=== PATIENT | female | born 1990 | race Caucasian/White ===

== ENCOUNTER 2016-08-26 19:46 | Emergency (ER) | payer OTHER ==
[2016-08-26 19:51] VITALS: BP 111/71; PULSE 89; TEMP 98; BMI 27.1
--- NOTE | 2016-08-26 20:37 | PDOC ---
History of Present Illness - General Chief Complaint: Injury Stated Complaint: INJURY Time Seen by Provider: 08/26/16 20:19 History Source: Patient Exam Limitations: No Limitations - History of Present Illness Initial Comments: 08/26/16 20:36 All swimming yesterday collided with edge of pool causing a impact to left foot fourth and fifth toes. Has been bruised and swollen, exquisitely painful primarily fourth toe. No other injury 08/26/16 20:37 Occurred: reports: yesterday Severity: reports: moderate Pain Location: reports: none Associated Symptoms (Fall): denies symptoms Past History - Travel Traveled outside of the country in the last 30 days: No Close contact w/someone who was outside of country & ill: No - Past Medical History Allergies/Adverse Reactions: Allergies Allergy/AdvReac Type Severity Reaction Status Date / Time No Known Drug Allergies Allergy Verified 08/26/16 19:49 seafood AdvReac Severe swelling Uncoded 08/26/16 19:49 of body and face Home Medications: Ambulatory Orders Ibuprofen [Motrin -] 600 mg PO Q4H PRN #1 tablet 06/08/11 Iron 1 PO DAILY #0 06/08/11 Pnv Comb.no58/Iron Bisgly/FA [ Capsule] 1 each PO DAILY #0 capsule 06/07 Asthma: No Cancer: No Cardiac Disorders: No Diabetes: No HTN: No Seizures: No Thyroid Disease: No - Psycho/Social/Smoking Cessation Hx Suicidal Ideation: No Smoking History: Never smoked Hx Alcohol Use: No Drug/Substance Use Hx: No Hx Substance Use Treatment: No Trauma Specific PMHX - Complaint Specific PMHX Back Injury: No Neck Injury: No Review of Systems - Review of Systems Able to Perform ROS?: Yes Is the patient limited Icelandic proficient: Yes Constitutional: Yes: Symptoms Reported Integumentary: Yes: Symptoms Reported, See HPI Neurological: Yes: Symptoms reported All Other Systems: Reviewed and Negative *Physical Exam - Vital Signs Last Vital Signs Temp Pulse Resp BP Pulse Ox 98 F 89 18 111/71 100 08/26/16 19:50 08/26/16 19:50 08/26/16 19:50 08/26/16 19:50 08/26/16 19:50 - Physical Exam General Appearance: Yes: Nourished, Appropriately Dressed, Apparent Distress HEENT: positive: PATRICE, TMs Normal, Pharynx Normal Neck: positive: Tender, Supple Respiratory/Chest: positive: Lungs Clear, Normal Breath Sounds Extremity: positive: Tender, Swelling Integumentary: positive: Normal Color, Bruising Neurologic: positive: 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 Rhianna taped and cast shoe applied, will follow up as needed *DC/Admit/Observation/Transfer Diagnosis at time of Disposition: Fracture of fourth toe, left, closed Qualifiers: Encounter type: initial encounter Qualified Code(s): S92.502A - Displaced unspecified fracture of left lesser toe(s), initial encounter for closed fracture - Discharge Dispostion Disposition: HOME Condition at time of disposition: Stable Admit: No - Patient Instructions Printed Discharge Instructions: DI for Toe Fracture Additional Instructions: Rest, ice to area on and off for 15 minutes 4-6 times a day Avoid heavy lifting or exercise until pain and swelling is resolved or until further directed Keep area highly elevated to reduce swelling Use splints/Rafael wrap as directed- rhianna tape and cast shoe as directed Followup with orthopedist in one to 2 days if not improving, if significantly improved may wait one week for followup with orthopedist May use ibuprofen 2-200 mg tablets every 6 hours as needed for pain
== END 2016-08-26 20:44 | disposition home or self-care (01) ==
LOC: JERFT 19:46
DX: S92.502A Displaced unspecified fracture of left lesser toe(s), initial encounter for closed fracture (principal); W22.042A Striking against wall of swimming pool causing other injury, initial encounter; Y93.11 Activity, swimming; Y92.34 Swimming pool (public) as the place of occurrence of the external cause; Y99.8 Other external cause status
CPT/HCPCS: 99281-25

== ENCOUNTER 2016-12-26 21:26 | Emergency (ER) | payer OTHER ==
[2016-12-26 21:42] VITALS: BP 104/70; PULSE 79; TEMP 98.3; BMI 27.8
--- NOTE | 2016-12-26 22:03 | PDOC ---
History of Present Illness - General Chief Complaint: Respiratory Stated Complaint: COUGHING - History of Present Illness Initial Comments: 12/26/16 22:03 CHIEF COMPLAINT: cough HISTORY OF PRESENT ILLNESS: 26-year-old female with no past medical history presents to [facility] with cough 3 weeks. Patient reports that she has had no fever, chills, nausea, vomiting, diarrhea, and "I do not feel sick or anything "but is bothered by this cough. Patient reports that she thinks this is ALLERGIES and started taking Claritin approximately 1-2 weeks ago but has not had any relief. She has not taken any medicine for her cough. No recent travel or sick contacts. PAST MEDICAL HISTORY: Denies past medical history FAMILY HISTORY: Denies SOCIAL HISTORY: Denies tobacco, alcohol, illicit drug use. SURGICAL HISTORY: Denies ALLERGIES: No known drug allergies REVIEW OF SYSTEMS General/Constitutional: Denies fever or chills. Denies weakness. HEENT: Denies change in vision. Denies ear pain or discharge. Denies sore throat. Cardiovascular: Denies chest pain or shortness of breath. Respiratory: Cough x 3 weeks, denies wheezing or hemoptysis. Gastrointestinal: Denies nausea, vomiting, diarrhea PHYSICAL EXAM General Appearance: Well-appearing, appropriately dressed. No apparent distress. HEENT: Minimal exudate to left tonsil. EOMI, PERRLA, normal ENT inspection, normal voice, TMs normal, pharynx normal. No conjunctival pallor. No photophobia, scleral icterus. Respiratory/Chest: Lungs CTAB. No shortness of breath, chest tenderness, respiratory distress, accessory muscle use. No crackles, rales, rhonchi, stridor , wheezing, dullness Cardiovascular: RRR. S1, S2. No JVD, murmur, bradycardia, tachycardia. Gastrointestinal/Abdominal: Normal bowel sounds. Abdomen soft, non-distended. No tenderness or rebound tenderness. No organomegaly, pulsatile mass, guarding , hernia, hepatomegaly, splenomegaly. Musculoskeletal/Extremities: Normal inspection. FROM of all extremities, normal capillary refill. Pelvis Stable. No CVA tenderness. No tenderness to extremities, pedal edema, swelling, erythema or deformity. Integumentary: Appropriate color, dry, warm. No cyanosis, erythema, jaundice or rash Neurologic: .net architect II-XII intact. Fully oriented, alert. Appropriate mood/affect. Motor strength 5/5. No appreciable EOM palsy, facial droop or sensory deficit. 12/26/16 22:05 Past History - Past Medical History Allergies/Adverse Reactions: Allergies Allergy/AdvReac Type Severity Reaction Status Date / Time No Known Drug Allergies Allergy Verified 12/26/16 21:41 seafood AdvReac Severe swelling Uncoded 12/26/16 21:41 of body and face Home Medications: Ambulatory Orders Dextromethorphan HBr [Cough Control] 15 mg PO QID PRN #40 capsule 12/26/16 Ibuprofen 600 mg PO Q6H PRN #40 tablet 12/26/16 Asthma: No Cancer: No Cardiac Disorders: No Diabetes: No HTN: No Seizures: No Thyroid Disease: No - Suicide/Smoking/Psychosocial Hx Smoking History: Never smoked Hx Alcohol Use: No Drug/Substance Use Hx: No Hx Substance Use Treatment: No *Physical Exam - Vital Signs Last Vital Signs Temp Pulse Resp BP Pulse Ox 98.3 F 79 18 104/70 99 12/26/16 21:38 12/26/16 21:38 12/26/16 21:38 12/26/16 21:38 12/26/16 21:38 Medical Decision Making - Medical Decision Making 12/26/16 22:07 26-year-old female with no past medical history presents to [facility] with cough 3 weeks. -robitussin -continue claritin patient has appt with ENT in 9 days. advised patient to take medications as prescribed and keep appt with ENT if cough persists. *DC/Admit/Observation/Transfer Diagnosis at time of Disposition: Cough - Discharge Dispostion Disposition: HOME Condition at time of disposition: Stable Admit: No - Prescriptions Prescriptions: Dextromethorphan HBr [Cough Control] 15 mg PO QID PRN #40 capsule PRN Reason: Cough Ibuprofen 600 mg PO Q6H PRN #40 tablet PRN Reason: Pain - Patient Instructions Printed Discharge Instructions: DI for Cough -- Adult
== END 2016-12-26 22:14 | disposition home or self-care (01) ==
LOC: JER 21:26 → JERFT 21:26
DX: R05 Cough (principal)
CPT/HCPCS: 87070; 87077; 87430; 99281-25

== ENCOUNTER 2018-03-16 08:00 | Emergency (ER) | payer SELFPAY ==
[2018-03-16 08:06] VITALS: BP 116/68; PULSE 73; TEMP 98; BMI 26.1
--- NOTE | 2018-03-16 08:23 | PDOC ---
History of Present Illness - General Chief Complaint: Injury Stated Complaint: INJURY,FINGERS Time Seen by Provider: 03/16/18 08:17 - History of Present Illness Initial Comments: 03/16/18 08:28 Pt is a 27 y/o F who presents for evaluation of L wrist and 3rd/4th L finger pain. Pt states she was walking her dog, when her dog slipped and fell and pulled her down as well. She states she landed on her L wrist. She states that the L 4th nail is also bleeding. Denies LOC or head trauma. Denies numbness and tingling and weakness to the extremity. Past History - Past Medical History Allergies/Adverse Reactions: Allergies Allergy/AdvReac Type Severity Reaction Status Date / Time No Known Drug Allergies Allergy Verified 03/16/18 08:03 seafood AdvReac Severe swelling Uncoded 03/16/18 08:03 of body and face Home Medications: Ambulatory Orders NK [No Known Home Medication] 03/16/18 Asthma: No Cancer: No Cardiac Disorders: No COPD: No Diabetes: No HTN: No Seizures: No Thyroid Disease: No - Immunization History Immunization Up to Date: Yes - Suicide/Smoking/Psychosocial Hx Smoking History: Never smoked Hx Alcohol Use: No Drug/Substance Use Hx: No Hx Substance Use Treatment: No Review of Systems - Review of Systems Able to Perform ROS?: Yes Comments:: 03/16/18 08:22 CONSTITUTIONAL: Absent: fever, chills, diaphoresis, generalized weakness, malaise, loss of appetite MUSCULOSKELETAL: Present: L wrist pain/swelling Absent: myalgia, SKIN: Absent: rash, itching, pallor NEUROLOGIC: Absent: headache, focal weakness or paresthesias, dizziness, unsteady gait, seizure, mental status changes, bladder or bowel incontinence PSYCHIATRIC: Absent: anxiety, depression, suicidal or homicidal ideation, hallucinations. Is the patient limited Mongolian proficient: No *Physical Exam - Vital Signs Last Vital Signs Temp Pulse Resp BP Pulse Ox 98.0 F 73 18 116/68 100 03/16/18 08:03 03/16/18 08:03 03/16/18 08:03 03/16/18 08:03 03/16/18 08:03 - Physical Exam Comments: 03/16/18 08:23 GENERAL: The patient is awake, alert, and fully oriented, in no acute distress. HEAD: Normal with no signs of trauma. EYES: Pupils equal, round and reactive to light, extraocular movements intact, sclera anicteric, conjunctiva clear. EXTREMITIES: Normal range of motion, no edema. NEUROLOGICAL: Normal speech, normal gait. PSYCH: Normal mood, normal affect. SKIN: Warm, Dry, normal turgor, no rashes or lesions noted. Moderate Sedation - Procedure Monitoring Vital Signs: Procedure Monitoring Vital Signs Temperature 98.0 F 03/16/18 08:03 Pulse Rate 73 03/16/18 08:03 Respiratory Rate 18 03/16/18 08:03 Blood Pressure 116/68 03/16/18 08:03 O2 Sat by Pulse Oximetry (%) 100 03/16/18 08:03 ED Treatment Course - RADIOLOGY Radiology Studies Ordered: Category Date Time Status WRIST W/HAND-LEFT* [RAD] Stat Radiology 03/16/18 08:20 Ordered *DC/Admit/Observation/Transfer Diagnosis at time of Disposition: Wrist pain Qualifiers: Laterality: left Qualified Code(s): M25.532 - Pain in left wrist - Discharge Dispostion Disposition: HOME Condition at time of disposition: Stable Decision to Admit order: No - Referrals Referrals: Cecil Bowers MD [Primary Care Provider] - - Patient Instructions Printed Discharge Instructions: DI for Nail Avulsion Injury Additional Instructions: You fell today. Your x-ray was negative for fractures or broken bones You had your nail come out of the nail bed. This was fixed today Please keep the nail clean and dry. If the steri strips fall off, please replace them Return to the ED in 2 days for a wound check Return to the ED sooner if you have signs of infection including fever, redness around the nail or finger, purlent discharge, or if you have any changes in your symptoms - Post Discharge Activity Forms/Work/School Notes: Back to Work
[2018-03-16] MEDS ORDERED: IBUPROFEN 400 MG TABLET (FP) PO ONE ×2 (08:27)
== END 2018-03-16 10:41 | disposition home or self-care (01) ==
LOC: JERFT 08:00
DX: M25.532 Pain in left wrist (principal); W01.0XXA Fall on same level from slipping, tripping and stumbling without subsequent striking against object, initial encounter; Y93.K1 Activity, walking an animal; Y92.410 Unspecified street and highway as the place of occurrence of the external cause
CPT/HCPCS: 73110-TC-LR-FY; 73130-TC-LT-FY; 99281-25

== ENCOUNTER 2019-10-02 15:35 | Emergency (ER) | payer OTHER ==
[2019-10-02 15:44] VITALS: BP 111/78; PULSE 81; TEMP 98.6; BMI 27.8
[2019-10-02] MEDS ORDERED: METHOCARBAMOL 500 MG TABLET PO ONE (15:45)
[2019-10-02] MEDS ORDERED: KETOROLAC TROMETHAMINE 60 MG/2 ML VIAL IM ONE (15:45)
--- NOTE | 2019-10-02 15:45 | PDOC ---
Rapid Medical Evaluation Chief Complaint: Pain, Acute Time Seen by Provider: 10/02/19 15:41 Medical Evaluation: Allergies Allergy/AdvReac Type Severity Reaction Status Date / Time No Known Drug Allergies Allergy Verified 03/16/18 08:03 seafood AdvReac Severe swelling Uncoded 03/16/18 08:03 of body and face 10/02/19 15:41 I have performed a brief in-person evaluation of this patient. The patient presents with a chief complaint of: posterior right shoulder pain after waking yesterday which increases with elevation of right arm. Denies trauma or injury. pt did not take anything for pain. Denies any other symptoms Pertinent physical exam findings: TTP over scapula of right shoulder with increased subjective pain with inversion of RUE or elevation of right arm . I have ordered the following: ace adhikari The patient will proceed to the ED for further evaluation. Discharge Disposition - Diagnosis Sprain of right shoulder girdle Qualifiers: Encounter type: initial encounter Qualified Code(s): S43.91XA - Sprain of unspecified parts of right shoulder girdle, initial encounter - Discharge Dispostion Condition at time of disposition: Stable - Referrals - Patient Instructions - Post Discharge Activity
[2019-10-02] MEDS ORDERED: KETOROLAC TROMETHAMINE 60 MG/2 ML VIAL ONE (15:52)
[2019-10-02] MEDS ORDERED: METHOCARBAMOL 500 MG TABLET ONE (15:54)
--- NOTE | 2019-10-02 16:49 | PDOC ---
History of Present Illness - General Chief Complaint: Pain, Acute Stated Complaint: RT SHOULDER PAIN Time Seen by Provider: 10/02/19 15:41 History Source: Patient Exam Limitations: No Limitations - History of Present Illness Initial Comments: 10/02/19 16:46 HISTORY OF PRESENT ILLNESS: 28-year-old woman who denies medical history presents emergency department for evaluation of right upper back pain starting 2 days ago. Patient reports she woke up in the morning and felt a sharp stabbing pain in her right upper back which worsens with movement. Patient was unable to quantify the amount of pain but notes that it is "very bad." Patient has not taken any pain management prior to arrival in the emergency department and is now concerned that pain is moved to her right axilla. Patient denies any neurosensory deficits or trauma. No recent travel or sick contacts. PAST MEDICAL HISTORY: Denies past medical history SURGICAL HISTORY: Denies ALLERGIES: No known drug allergies REVIEW OF SYSTEMS General/Constitutional: Denies fever or chills. Denies weakness, weight change. HEENT: Denies change in vision. Denies ear pain or discharge. Denies sore throat. Cardiovascular: Denies chest pain or shortness of breath. Respiratory: Denies cough, wheezing, or hemoptysis. Gastrointestinal: Denies nausea, vomiting, diarrhea or constipation. Denies rectal bleeding. Genitourinary: Denies dysuria, frequency, or change in urination. Musculoskeletal: See HPI Skin and breasts: Denies rash or easy bruising. Neurologic: Denies headache, vertigo, loss of consciousness, or loss of s ensation. Psychiatric: Denies depression or anxiety. Endocrine: Denies increased thirst. Denies abnormal weight change. Hematologic/Lymphatic: Denies anemia, easy bleeding, or history of blood clots. Allergic/Immunologic: Denies hives or skin allergy. Denies latex allergy. PHYSICAL EXAM General Appearance: Well-appearing, appropriately dressed. No apparent distress, no intoxication. Musculoskeletal/Extremities: Normal inspection. FROM of all extremities, normal capillary refill. Pelvis Stable. No CVA tenderness. No tenderness to extremities, pedal edema, swelling, erythema or deformity. Point tenderness present in the trapezius muscle on the right side midline under scapula. Neurologic: oven loader II-XII intact. Fully oriented, alert. Appropriate mood/affect. Motor strength 5/5. No appreciable EOM palsy, facial droop or sensory deficit. 10/02/19 17:09 Past History - Medical History Allergies/Adverse Reactions: Allergies Allergy/AdvReac Type Severity Reaction Status Date / Time No Known Drug Allergies Allergy Verified 10/02/19 15:44 seafood AdvReac Severe swelling Uncoded 10/02/19 15:44 of body and face Home Medications: Ambulatory Orders Methocarbamol [Robaxin -] 1,000 mg PO TID PRN #42 tablet 10/02/19 Asthma: No Cancer: No Cardiac Disorders: No COPD: No Diabetes: No HTN: No Seizures: No Thyroid Disease: No - Immunization History Immunization Up to Date: Yes - Psycho-Social/Smoking History Smoking History: Never smoked - Substance Abuse Hx (Audit-C & DAST Scrn) How often the patient has a drink containing alcohol: Never Score: In Men: 4 or > Positive; In Women: 3 or > Positive: 0 Screen Result (Pos requires Nsg. Audit-10AR): Negative Trauma Specific PMHX - Complaint Specific PMHX Back Injury: No Neck Injury: No *Physical Exam - Vital Signs Last Vital Signs Temp Pulse Resp BP Pulse Ox 98.6 F 81 18 111/78 99 10/02/19 15:41 10/02/19 15:41 10/02/19 15:41 10/02/19 15:41 10/02/19 15:41 ED Treatment Course - Medications Given in the ED: ED Medications Discontinued Medications Generic Name Dose Route Start Last Admin Trade Name Freq PRN Reason Stop Dose Admin Ketorolac Tromethamine 60 mg 10/02/19 15:45 10/02/19 16:16 Toradol Injection - IM 10/02/19 15:46 60 mg ONCE ONE Administration Methocarbamol 500 mg 10/02/19 15:45 10/02/19 16:16 Robaxin - PO 10/02/19 15:46 500 mg ONCE ONE Administration Medical Decision Making - Medical Decision Making 10/02/19 16:48 A/P: 28-year-old woman with atraumatic right upper back pain Point tenderness in the right trapezius muscle midline under scapula. No bony tenderness, deformity, crepitus or step-off is appreciated along the cervical and thoracic spine. No bony abnormality noted upon palpation of the clavicle or bones of the shoulders bilaterally. Meds per RME Reassess 10/02/19 17:08 Patient reports she is currently pain-free and is requesting discharge. Discharge home with prescription for Robaxin and PMD follow-up. I discussed the physical exam findings, ancillary test results and final diagnoses with the patient. I answered all of the patient's questions. The patient was satisfied with the care received and felt comfortable with the discharge plan and treatment plan. The patient will call their primary care physician within 24 hours to arrange follow-up and will return to the Emergency Department with any new, persistent or worsening symptoms. Portions of this note have been documented using voice recognition software. As a result, errors may occur in the supervisor fryer farm process. Effort has been made to correct all grammatical and supervisor fryer farm error, but some may have been missed which may produce sporadic inaccurate supervisor fryer farm or nonsensical phrases. Discharge - Discharge Information Problems reviewed: Yes Clinical Impression/Diagnosis: Sprain of right shoulder girdle Qualifiers: Encounter type: initial encounter Qualified Code(s): S43.91XA - Sprain of unspecified parts of right shoulder girdle, initial encounter Condition: Fair Disposition: HOME - Admission No - Additional Discharge Information Prescriptions: Methocarbamol [Robaxin -] 1,000 mg PO TID PRN #42 tablet PRN Reason: Pain - Follow up/Referral Referrals: Marci Kan NP [Primary Care Provider] - - Patient Discharge Instructions Additional Instructions: Rest. Take Naprosyn as directed by motor vehicle or caravan salesperson's instructions. Take Robaxin 1000 mg 3 times a day as needed for pain. Your emergency department visit is incomplete until you follow-up with your primary doctor. Return to the ER for any new or worsening symptoms. Thank you very much for choosing us to provide your emergent healthcare needs. - Post Discharge Activity
== END 2019-10-02 17:15 | disposition home or self-care (01) ==
LOC: JERFT 15:35
PROC: 3E0233Z Introduction of Anti-inflammatory into Muscle, Percutaneous Approach (ICD-10-PCS; principal; 2019-10-02)
DX: S43.91XA Sprain of unspecified parts of right shoulder girdle, initial encounter (principal)
CPT/HCPCS: 99284-25

== ENCOUNTER 2020-07-23 15:49 | Emergency (ER) | payer OTHER ==
[2020-07-23 16:19] VITALS: BMI 28.2
[2020-07-23] MEDS ORDERED: SODIUM CHLORIDE 1,000 ML IV STA (17:36)
[2020-07-23] MEDS ORDERED: ACETAMINOPHEN 500 MG TABLET (FP) PO ONE (17:37)
[2020-07-23] MEDS ORDERED: IBUPROFEN 600 MG TABLET (FP) PO ONE ×2 (17:37→18:23)
[2020-07-23] MEDS ORDERED: DEXAMETHASONE LIQUID 0.5 MG/5 ML PO ONE (17:37)
[2020-07-23] MEDS ORDERED: DEXAMETHASONE SOD PHOSPHATE 10 MG/1 ML VIAL ONE (18:23)
[2020-07-23] MEDS ORDERED: ACETAMINOPHEN 325 MG TABLET (FP) ONE (18:23)
[2020-07-23 18:55] LABS: BASO % 0.3 % (0-2.0); EOS % 5.1 % (0-4.5); HEMATOCRIT 40.5 % (32.4-45.2); HEMOGLOBIN 13.6 GM/dL (10.7-15.3); LYMPH % 7.7 % (8-40); MCH 28.4 pg (25.7-33.7); MCHC 33.6 g/dl (32.0-36.0); MEAN CELL VOLUME 84.5 fl (80-96); MEAN PLT VOLUME 9.6 fl (7.5-11.1); MONO % 7.6 % (3.8-10.2); NEUT % 79.3 % (42.8-82.8); PLATELET COUNT 212 K/MM3 (134-434); RDW 13.9 % (11.6-15.6); WHITE BLOOD COUNT 8.2 K/mm3 (4.0-10.0)
[2020-07-23] MEDS ORDERED: PENICILLIN G BENZATHINE 1,200,000 UNIT/2 ML PFS IM ONE ×2 (18:58→19:50)
[2020-07-23 19:20] LABS: BLOOD UREA NITROGEN 9.7 mg/dL (7-18); CALCIUM 8.7 mg/dL (8.5-10.1)
[2020-07-23 19:21] LABS: ALBUMIN 3.7 g/dl (3.4-5.0)
[2020-07-23 19:24] LABS: CREATININE 0.8 mg/dL (0.55-1.3)
[2020-07-23 19:25] LABS: BILIRUBIN,TOTAL 0.5 mg/dL (0.2-1)
[2020-07-23 20:32] VITALS: BP 115/68; PULSE 116; TEMP 98.5
== END 2020-07-23 20:32 | disposition home or self-care (01) ==
LOC: JER 15:49 → JERFT 15:49 → JER 20:32
PROC: 3E02329 Introduction of Other Anti-infective into Muscle, Percutaneous Approach (ICD-10-PCS; principal; 2020-07-23)
PROC: 3E0337Z Introduction of Electrolytic and Water Balance Substance into Peripheral Vein, Percutaneous Approach (ICD-10-PCS; 2020-07-23)
DX: J02.0 Streptococcal pharyngitis (principal)
CPT/HCPCS: 36415; 80053; 83605; 85025; 86308; 87040; 87880; 99284-25; C9803; U0003; U0005

== ENCOUNTER 2022-12-22 19:31 | Inpatient (IN) | payer OTHER ==
[2022-12-22] MEDS ORDERED: ACETAMINOPHEN 1000 MG/100 ML BAG IVPB ONE (19:44)
[2022-12-22] MEDS ORDERED: SODIUM CHLORIDE 0.9% 500 ML INFUS.BAG IV ONE (19:44)
[2022-12-22] MEDS ORDERED: ACETAMINOPHEN INJECTION 100 ML IVPB ONE (19:52)
[2022-12-22] MEDS ORDERED: ONDANSETRON 4 MG/2 ML VIAL IVPUSH ONE (19:54)
[2022-12-22] MEDS ORDERED: ONDANSETRON 4 MG/2 ML VIAL ONE (19:57)
[2022-12-22 20:50] LABS: BASO % 0.4 % (0-2.0); EOS % 1.2 % (0-4.5); HEMATOCRIT 40.9 % (32.4-45.2); HEMOGLOBIN 13.9 GM/dL (10.7-15.3); LYMPH % 26.2 % (8-40); MCH 28.5 pg (25.7-33.7); MCHC 33.9 g/dl (32.0-36.0); MEAN CELL VOLUME 84.1 fl (80-96); MEAN PLT VOLUME 9.5 fl (7.5-11.1); MONO % 4.2 % (3.8-10.2); PLATELET COUNT 370 10^3/uL (134-434); RBC 4.86 M/mm3 (3.60-5.2); RDW 14.3 % (11.6-15.6); WHITE BLOOD COUNT 11.5 K/mm3 (4.0-10.0)
[2022-12-22 21:04] LABS: POTASSIUM 4.1 mmol/L (3.5-5.1)
[2022-12-22 21:06] LABS: ALBUMIN 4.3 g/dl (3.4-5.0); CALCIUM 9.4 mg/dL (8.5-10.1)
[2022-12-22 21:07] LABS: BLOOD UREA NITROGEN 12.3 mg/dL (7-18)
[2022-12-22 21:09] LABS: CREATININE 0.8 mg/dL (0.55-1.3)
[2022-12-22 21:11] LABS: BILIRUBIN,TOTAL 0.3 mg/dL (0.2-1); TOT PROT 8.7 g/dl (6.4-8.2)
[2022-12-22] MEDS ORDERED: KETOROLAC TROMETHAMINE 15 MG/ML VIAL IVPUSH ONE (21:36)
[2022-12-22 21:59] LABS: EPI CELLS >36 /uL (0-25.1); HYALINE CASTS 2 /uL (0-3.1); URINE APPEARANCE CLOUDY; URINE BACTERIA 254 /uL (0-1359); URINE BILIRUBIN NEGATIVE (NEGATIVE); URINE COLOR YELLOW; URINE GLUCOSE (UA) NEGATIVE (NEGATIVE); URINE KETONE TRACE (NEGATIVE); URINE LEUK ESTERASE NEGATIVE (NEGATIVE); URINE NITRITE NEGATIVE (NEGATIVE); URINE PROTEIN 1+ (NEGATIVE); URINE RBC 822 /uL (0-23.9); URINE WBC 47 /uL (0-25.8)
[2022-12-22] MEDS ORDERED: CEFTRIAXONE 1 GM in DEXTROSE 5%-WATER - 100 ML IVPB ONE (22:10)
[2022-12-22] MEDS ORDERED: cefTRIAXone SODIUM 1 GM VIAL ONE (22:13)
[2022-12-22] MEDS ORDERED: CEFTRIAXONE 1 GM/50 ML BAG ONE (22:18)
[2022-12-22] MEDS ORDERED: KETOROLAC TROMETHAMINE 15 MG/ML VIAL ONE (22:45)
[2022-12-23] MEDS: DEXTROSE 5%-0.45% SALINE 1,000 ML IV SCH ×2 (00:16→11:30)
[2022-12-23] MEDS ORDERED: ACETAMINOPHEN 1000 MG/100 ML BAG IVPB PRN (02:00)
[2022-12-23] MEDS ORDERED: ONDANSETRON 4 MG/2 ML VIAL IVPUSH PRN (02:00)
[2022-12-23] MEDS ORDERED: ACETAMINOPHEN INJECTION 100 ML IVPB ONE (05:19)
[2022-12-23 08:23] LABS: BASO % 0.6 % (0-2.0); EOS % 2.3 % (0-4.5); HEMATOCRIT 38.2 % (32.4-45.2); HEMOGLOBIN 12.6 GM/dL (10.7-15.3); LYMPH % 34.7 % (8-40); MCH 28.5 pg (25.7-33.7); MEAN CELL VOLUME 86.3 fl (80-96); MEAN PLT VOLUME 9.2 fl (7.5-11.1); MONO % 5.5 % (3.8-10.2); NEUT % 56.9 % (42.8-82.8); PLATELET COUNT 375 10^3/uL (134-434); RBC 4.43 M/mm3 (3.60-5.2); RDW 14.5 % (11.6-15.6); WHITE BLOOD COUNT 9.9 K/mm3 (4.0-10.0)
[2022-12-23 08:59] VITALS: BMI 31.1
[2022-12-23 09:08] LABS: BLOOD UREA NITROGEN 11.4 mg/dL (7-18); CALCIUM 7.9 mg/dL (8.5-10.1); CREATININE 0.6 mg/dL (0.55-1.3); POTASSIUM 4.3 mmol/L (3.5-5.1)
[2022-12-23] MEDS: CEFTRIAXONE 1 GM in DEXTROSE 5%-WATER - 50 ML IVPB SCH (09:40)
[2022-12-24] MEDS: DEXTROSE 5%-0.45% SALINE 1,000 ML IV SCH ×3 (00:27→21:11)
[2022-12-24] MEDS: CEFTRIAXONE 1 GM in DEXTROSE 5%-WATER - 50 ML IVPB SCH (11:00)
[2022-12-24] MEDS ORDERED: PROPOFOL 40 ML ONE (15:42)
[2022-12-24] MEDS ORDERED: MIDAZOLAM HCL 2 MG/2 ML SINGLE DOSE VIAL ONE (15:42)
[2022-12-24] MEDS ORDERED: SUCCINYLCHOLINE CHLORIDE 200 MG/10 ML SYRINGE ONE (15:42)
[2022-12-24] MEDS ORDERED: PROPOFOL 20 ML ONE (15:50)
[2022-12-24] MEDS ORDERED: LACTATED RINGERS SOLUTION 1,000 ML IV SCH ×2 (17:30→19:30)
[2022-12-24] MEDS ORDERED: KETOROLAC TROMETHAMINE 30 MG/1 ML VIAL ONE (17:57)
[2022-12-24] MEDS ORDERED: ONDANSETRON 4 MG/2 ML VIAL ONE (17:57)
[2022-12-24] MEDS ORDERED: ceFAZolin SODIUM 1 GM VIAL ONE (17:57)
[2022-12-24] MEDS ORDERED: ceFAZolin SODIUM 1 GM VIAL IVPB ONE (17:58)
[2022-12-24] MEDS ORDERED: ONDANSETRON 4 MG/2 ML VIAL IVPUSH PRN (19:30)
[2022-12-24] MEDS: ACETAMINOPHEN 1000 MG/100 ML BAG IVPB PRN (21:19)
[2022-12-25 06:17] VITALS: RESP 18
[2022-12-25] MEDS: DEXTROSE 5%-0.45% SALINE 1,000 ML IV SCH ×2 (06:20→17:34)
[2022-12-25] MEDS: ACETAMINOPHEN 1000 MG/100 ML BAG IVPB PRN ×3 (08:10→20:30)
[2022-12-25] MEDS ORDERED: CEFTRIAXONE 1 GM in DEXTROSE 5%-WATER - 50 ML IVPB SCH (10:00)
[2022-12-26] MEDS: ACETAMINOPHEN 1000 MG/100 ML BAG IVPB PRN (03:32)
[2022-12-26] MEDS: DEXTROSE 5%-0.45% SALINE 1,000 ML IV SCH (03:32)
[2022-12-26 10:12] LABS: POTASSIUM 3.9 mmol/L (3.5-5.1)
[2022-12-26 10:37] LABS: BLOOD UREA NITROGEN 6.6 mg/dL (7-18); CALCIUM 8.5 mg/dL (8.5-10.1)
[2022-12-26 10:38] VITALS: BP 117/68; PULSE 91; TEMP 98.4
[2022-12-26 10:40] LABS: CREATININE 0.5 mg/dL (0.55-1.3)
== END 2022-12-26 13:25 | disposition home or self-care (01) | DRG 463 ==
LOC: JER 19:31 → JERBED 23:05 → J5S 12-23 08:01 → OBSVTOIN 12-24 09:55
PROVIDERS: ADMIT Internal Medicine; ATTEND Family Medicine
PROC: 0T778DZ Dilation of Left Ureter with Intraluminal Device, Via Natural or Artificial Opening Endoscopic (ICD-10-PCS; principal; 2022-12-24 16:00)
PROC: BT1FZZZ Fluoroscopy of Left Kidney, Ureter and Bladder (ICD-10-PCS; 2022-12-24 16:00)
DX: N13.6 Pyonephrosis (principal); D72.829 Elevated white blood cell count, unspecified
CPT/HCPCS: 36415; 74176-TC; 80048; 80053; 81003; 84703; 85025; 87086; 94760; 99285-25; C2617; G0378

== ENCOUNTER 2022-12-27 22:34 | Observation (INO) | payer OTHER ==
[2022-12-27] MEDS ORDERED: KETOROLAC TROMETHAMINE 15 MG/ML VIAL IVPUSH ONE (23:15)
[2022-12-27] MEDS ORDERED: ONDANSETRON 4 MG/2 ML VIAL IVPUSH ONE (23:35)
[2022-12-27] MEDS ORDERED: SODIUM CHLORIDE 0.9% 500 ML INFUS.BAG IV ONE (23:35)
[2022-12-27] MEDS ORDERED: ONDANSETRON 4 MG/2 ML VIAL ONE (23:52)
[2022-12-27] MEDS ORDERED: KETOROLAC TROMETHAMINE 15 MG/ML VIAL ONE (23:52)
[2022-12-28 00:42] LABS: CHLORIDE 104 mmol/L (98-107); SODIUM 137 mmol/L (136-145)
[2022-12-28 00:44] LABS: CALCIUM 8.4 mg/dL (8.5-10.1)
[2022-12-28 00:45] LABS: BLOOD UREA NITROGEN 12.4 mg/dL (7-18); CO2 32 mmol/L (21-32); GLUCOSE,RANDOM 101 mg/dL (74-106)
[2022-12-28 00:48] LABS: CREATININE 0.9 mg/dL (0.55-1.3); SGOT/AST 63 U/L (15-37)
[2022-12-28 00:49] LABS: BILIRUBIN,TOTAL 0.2 mg/dL (0.2-1); TOT PROT 7.8 g/dl (6.4-8.2)
[2022-12-28 00:51] LABS: ALK PHOS 84 U/L (45-117)
[2022-12-28 01:16] LABS: BASO % 0.7 % (0-2.0); HEMATOCRIT 37.6 % (32.4-45.2); HEMOGLOBIN 12.1 GM/dL (10.7-15.3); LYMPH % 22.5 % (8-40); MCH 27.4 pg (25.7-33.7); MEAN CELL VOLUME 85.5 fl (80-96); MEAN PLT VOLUME 8.5 fl (7.5-11.1); MONO % 7.6 % (3.8-10.2); NEUT % 66.2 % (42.8-82.8); PLATELET COUNT 372 10^3/uL (134-434); RDW 14.6 % (11.6-15.6); WHITE BLOOD COUNT 12.8 K/mm3 (4.0-10.0)
[2022-12-28 01:30] LABS: ALBUMIN 3.4 g/dl (3.4-5.0); ANION GAP 1 MMOL/L (8-16); SGPT/ALT 36 U/L (13-61)
[2022-12-28 03:24] LABS: POTASSIUM 4.2 mmol/L (3.5-5.1)
[2022-12-28 03:25] LABS: CALCIUM 7.8 mg/dL (8.5-10.1)
[2022-12-28 03:26] LABS: BLOOD UREA NITROGEN 12.8 mg/dL (7-18)
[2022-12-28 03:29] LABS: CREATININE 0.7 mg/dL (0.55-1.3)
[2022-12-28 05:00] LABS: EPI CELLS >36 /uL (0-25.1); HYALINE CASTS 28 /uL (0-3.1); PH,URINE 5.5 (5.0-8.0); URINE APPEARANCE TURBID; URINE BILIRUBIN 1+ (NEGATIVE); URINE COLOR RED; URINE GLUCOSE (UA) NEGATIVE (NEGATIVE); URINE KETONE NEGATIVE (NEGATIVE); URINE LEUK ESTERASE 2+ (NEGATIVE); URINE NITRITE POSITIVE (NEGATIVE); URINE PROTEIN 3+ (NEGATIVE); URINE UROBILINOGEN 0.2 mg/dL (0.2-1.0); URINE WBC 230 /uL (0-25.8)
[2022-12-28 05:19] LABS: URINE RBC 51412.3 /uL (0-23.9); YEAST NONE SEEN (NEGATIVE)
[2022-12-28] MEDS ORDERED: ACETAMINOPHEN 1000 MG/100 ML BAG IVPB ONE (06:09)
[2022-12-28] MEDS ORDERED: ACETAMINOPHEN INJECTION 100 ML IVPB ONE (06:22)
[2022-12-28] MEDS ORDERED: CEFTRIAXONE 1 GM/50 ML BAG ONE (09:35)
[2022-12-28 11:18] VITALS: BMI 30.9
[2022-12-29 06:18] VITALS: RESP 18
[2022-12-29] MEDS: CEFTRIAXONE 1 GM in DEXTROSE 5%-WATER - 50 ML IVPB SCH (09:55)
[2022-12-29] MEDS ORDERED: ACETAMINOPHEN 1000 MG/100 ML BAG IVPB ONE (20:44)
[2022-12-30] MEDS: CEFTRIAXONE 1 GM in DEXTROSE 5%-WATER - 50 ML IVPB SCH (09:35)
[2022-12-30 11:43] LABS: BASO % 0.7 % (0-2.0); EOS % 6.1 % (0-4.5); HEMATOCRIT 37.6 % (32.4-45.2); HEMOGLOBIN 12.5 GM/dL (10.7-15.3); LYMPH % 33.9 % (8-40); MCH 28.1 pg (25.7-33.7); MCHC 33.4 g/dl (32.0-36.0); MEAN CELL VOLUME 84.2 fl (80-96); MONO % 7.2 % (3.8-10.2); NEUT % 52.1 % (42.8-82.8); PLATELET COUNT 386 10^3/uL (134-434); RBC 4.46 M/mm3 (3.60-5.2); RDW 14.6 % (11.6-15.6); WHITE BLOOD COUNT 8.4 K/mm3 (4.0-10.0)
[2022-12-30 12:53] LABS: POTASSIUM 4.4 mmol/L (3.5-5.1)
[2022-12-30 12:59] LABS: ALBUMIN 3.3 g/dl (3.4-5.0); BLOOD UREA NITROGEN 10.8 mg/dL (7-18)
[2022-12-30 13:02] LABS: CREATININE 0.5 mg/dL (0.55-1.3)
[2022-12-30 13:03] LABS: BILIRUBIN,TOTAL 0.3 mg/dL (0.2-1)
[2022-12-30] MEDS ORDERED: ACETAMINOPHEN 500 MG TABLET (FP) PO PRN (15:26)
[2022-12-31] MEDS: CEFTRIAXONE 1 GM in DEXTROSE 5%-WATER - 50 ML IVPB SCH (09:40)
[2022-12-31 10:58] VITALS: BP 107/72; PULSE 86; TEMP 98.8
== END 2022-12-31 11:51 | disposition home health service (06) ==
LOC: JER 22:34 → JERBED 12-28 06:08 → J5S 12-28 10:32
PROVIDERS: ADMIT Family Medicine; ATTEND Family Medicine
PROC: 3E03329 Introduction of Other Anti-infective into Peripheral Vein, Percutaneous Approach (ICD-10-PCS; principal; 2022-12-28)
PROC: 3E033NZ Introduction of Analgesics, Hypnotics, Sedatives into Peripheral Vein, Percutaneous Approach (ICD-10-PCS; 2022-12-28)
PROC: 3E0333Z Introduction of Anti-inflammatory into Peripheral Vein, Percutaneous Approach (ICD-10-PCS; 2022-12-28)
PROC: 3E033GC Introduction of Other Therapeutic Substance into Peripheral Vein, Percutaneous Approach (ICD-10-PCS; 2022-12-28)
DX: N39.0 Urinary tract infection, site not specified (principal); N20.2 Calculus of kidney with calculus of ureter; R10.9 Unspecified abdominal pain; Z96.0 Presence of urogenital implants; Z91.013 Allergy to seafood
CPT/HCPCS: 36415; 74176-TC; 76000-TC-FY; 80048; 80053; 81003; 84703; 85025; 87086; 96365; 96368; 96375; 96376; 99285-25; G0378

== ENCOUNTER 2023-03-28 02:21 | Emergency (ER) | payer OTHER ==
[2023-03-28 02:29] VITALS: BP 128/83; PULSE 111; RESP 18; TEMP 98.4; BMI 29.2
[2023-03-28 03:07] LABS: THROAT:GRP A STREP NOT DETECTED (NOTDETECTED)
[2023-03-28] MEDS ORDERED: IBUPROFEN 600 MG TABLET (FP) PO ONE ×2 (03:12→03:14)
[2023-03-28] MEDS ORDERED: DEXAMETHASONE 4 MG TABLET (FP) PO ONE (03:13)
[2023-03-28] MEDS ORDERED: DEXAMETHASONE 4 MG TABLET (FP) ONE (03:15)
== END 2023-03-28 03:27 | disposition home or self-care (01) ==
LOC: JER 02:21
DX: J02.9 Acute pharyngitis, unspecified (principal); R07.0 Pain in throat; R05.9 Cough, unspecified; R06.02 Shortness of breath; R50.9 Fever, unspecified; Z20.822 Contact with and (suspected) exposure to COVID-19
CPT/HCPCS: 0241U-QW; 87651; 99283-25

== ENCOUNTER 2023-08-07 21:01 | Emergency (ER) | payer OTHER ==
[2023-08-07 21:06] VITALS: BP 122/79; PULSE 88; RESP 18; TEMP 97.9; BMI 27.2
[2023-08-07] MEDS ORDERED: KETOROLAC TROMETHAMINE 15 MG/ML VIAL ONE (21:59)
[2023-08-07 22:17] LABS: PH,URINE 5.5 (5.0-8.0); URINE APPEARANCE CLEAR; URINE BILIRUBIN NEGATIVE (NEGATIVE); URINE COLOR YELLOW; URINE GLUCOSE (UA) NEGATIVE (NEGATIVE); URINE KETONE 1+ (NEGATIVE); URINE LEUK ESTERASE NEGATIVE (NEGATIVE); URINE NITRITE NEGATIVE (NEGATIVE); URINE PROTEIN NEGATIVE (NEGATIVE)
[2023-08-07] MEDS: KETOROLAC TROMETHAMINE 15 MG/ML VIAL IM ONE (22:17)
[2023-08-07 22:18] LABS: HEMATOCRIT 39.5 % (32.4-45.2); HEMOGLOBIN 13.4 GM/dL (10.7-15.3); MCH 28.9 pg (25.7-33.7); MEAN PLT VOLUME 8.7 fl (7.5-11.1); PLATELET COUNT 349 10^3/uL (134-434); RBC 4.65 M/mm3 (3.60-5.2); RDW 14.2 % (11.6-15.6); WHITE BLOOD COUNT 9.1 K/mm3 (4.0-10.0)
[2023-08-07 22:28] LABS: CHLORIDE 105 mmol/L (98-107); POTASSIUM 3.5 mmol/L (3.5-5.1); SODIUM 134 mmol/L (136-145)
[2023-08-07 22:30] LABS: ALBUMIN 4.2 g/dl (3.4-5.0); ANION GAP 6 mmol/L (4-13); CALCIUM 9.2 mg/dL (8.5-10.1); CO2 24 mmol/L (21-32); GLUCOSE,RANDOM 100 mg/dL (74-106)
[2023-08-07 22:34] LABS: CREATININE 0.5 mg/dL (0.55-1.3); SGOT/AST 17 U/L (15-37); SGPT/ALT 18 U/L (13-61)
[2023-08-07 22:35] LABS: BILIRUBIN,TOTAL 0.4 mg/dL (0.2-1)
[2023-08-07 22:37] LABS: ALK PHOS 94 U/L (45-117)
[2023-08-07] MEDS: SODIUM CHLORIDE 1,000 ML IV SCH (23:04)
== END 2023-08-08 00:58 | disposition home or self-care (01) ==
LOC: JER 21:01
PROC: 3E0233Z Introduction of Anti-inflammatory into Muscle, Percutaneous Approach (ICD-10-PCS; principal; 2023-08-07)
DX: R10.9 Unspecified abdominal pain (principal); N20.0 Calculus of kidney
CPT/HCPCS: 36415; 74176-TC; 80053; 81003; 84702; 85027; 99284-25